=== PATIENT | female | born 1975 | race Caucasian/White ===

== ENCOUNTER 2017-10-20 12:29 | Emergency (ER) | payer OTHER ==
[~2017-10-20] VITALS: Ht 154.9 cm; Wt 56.7 kg
[~2017-10-20 12:29] MED LIST: MACROBID 100 M100 MG PO
[2017-10-20] MEDS ORDERED: PYRIDIUM100 MG PO (12:39)
== END 2017-10-20 12:42 | disposition home or self-care (01) ==
LOC: ED 12:29
DX: R39.89 Other symptoms and signs involving the genitourinary system (principal)